=== PATIENT | male | born 1985 | race Caucasian/White ===

== ENCOUNTER 2019-01-18 13:03 | Emergency (ER) | payer MEDICAID ==
[~2019-01-18] VITALS: Ht 170.2 cm; Wt 62.6 kg
[2019-01-18 13:09] VITALS: Ht 170.2 cm; Wt 62.6 kg
[2019-01-18 14:29] VITALS: BP 111/74
== END 2019-01-18 14:29 | disposition home or self-care (01) ==
LOC: ED 13:03
DX: R07.89 Other chest pain (principal)
CPT/HCPCS: Q0092